=== PATIENT | female | born 1995 | race Caucasian/White ===

== ENCOUNTER → 2021-06-04 | Outpatient (CLI) | payer BC ==
--- NOTE | 2021-06-04 18:43 | US ---
EXAMINATION TYPE: US thyroid st tissue head/neck DATE OF EXAM: 06/04/2021 COMPARISON: NONE CLINICAL HISTORY: 26-year-old female L04.0 Acute lymphadenitis of face, head and neck. Patient c/o sw elling of lymph nodes with pain, on and off. TECHNIQUE: Multiple sonographic images of the thyroid gland are obtained. FINDINGS: GLAND SIZE: Right Lobe: 4.8 x 1.6 x 1.2 cm Overall Parenchyma: Minimally heterogenous Left Lobe: 4.6 x 1.5 x 1.2 cm Overall Parenchyma: Minimally heterogeneous Isthmus Thickness: 0.4 cm NODULES RIGHT: # of nodules measured on right: 0 LEFT: # of nodules measured on left: 0 ISTHMUS: # of nodules measured in the isthmus: 1 1. 0.7 X 0.4 x 0.3 cm solid or almost completely solid, left sided, hypoechoic TR4 nodule, which is wider than tall, with ill-defined margins, without echogenic foci. Prior size: No Previous Bilateral neck scanned, no evidence of lymphadenopathy. 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 On the right, there is possible parotid gland cyst = 0.7 x 0.6 x 0.3 cm. IMPRESSION: 1. The palpable area behind the patient's left ear seems to correspond to a 7 mm cystic structure pos sibly in the periphery of the parotid gland. A small suppurative lymph node is possible. As this is p alpable, follow-up ultrasound in 2-3 months to reassess. 2. On the right, there appears to be a 7 mm cyst in the parotid gland. 3. Solitary solid TR4 cm nodule within the left isthmus. Consideration can be given to follow-up.
== END | disposition home or self-care (01) ==
LOC: RADUSWWP 15:07
PROVIDERS: ATTEND Family Medicine
DX: E04.1 Nontoxic single thyroid nodule (principal); L04.0 Acute lymphadenitis of face, head and neck
CPT/HCPCS: 76536